=== PATIENT | female | born 1975 | race Caucasian/White ===

== ENCOUNTER 2022-12-03 11:50 | Inpatient (IN) | payer MEDICAID ==
[~2022-12-03] VITALS: Ht 160 cm; Wt 70.0 kg
[2022-12-03 13:21] LABS: BASOPHILS # (AUTO) 0.1 X10'3 (0-0.2); BASOPHILS % (AUTO) 0.8 % (0-1); EOSINOPHILS # (AUTO) 0.1 X10'3 (0-0.9); EOSINOPHILS % (AUTO) 1.3 % (0-6); HEMATOCRIT 38.8 % (35.0-45.0); HEMOGLOBIN 12.6 g/dl (12.0-16.0); LYMPHOCYTES # (AUTO) 1.6 X10'3 (1.1-4.8); LYMPHOCYTES % (AUTO) 23.4 % (21-51); MEAN CORPUSCULAR HEMOGLOBIN 27.5 PG (27.0-31.0); MEAN CORPUSCULAR HGB CONC 32.4 g/dL (33.0-36.5); MEAN CORPUSCULAR VOLUME 84.8 FL (78-98); MEAN PLATELET VOLUME 9.1 FL (7.4-10.4); MONOCYTES # (AUTO) 0.6 X10'3 (0-0.9); MONOCYTES % (AUTO) 8.4 % (2-12); NEUTROPHILS # (AUTO) 4.7 X10'3 (1.8-7.7); NEUTROPHILS % (AUTO) 66.1 % (42-75); PLATELET COUNT 273 X10'3 (140-440); RED BLOOD COUNT 4.58 X10'6 (4.20-5.60); RED CELL DISTRIBUTION WIDTH 16.5 % (11.5-14.5)
[2022-12-03] MEDS ORDERED: acetaminophen 1,000mg/100ml IV 100 ML IV STA (13:26)
[2022-12-03] MEDS ORDERED: morphine 4 MG/ML inj SYRINge IV ONE (13:30)
[2022-12-03 13:31] LABS: APTT 27 SECONDS (22-32); INR 1.1 INR; PROTHROMBIN TIME 11.5 SECONDS (9.0-12.0)
[2022-12-03 13:35] LABS: ALANINE AMINOTRANSFERASE 45 U/L (12-78); ALBUMIN 3.5 G/DL (3.4-5.0); ALBUMIN/GLOBULIN RATIO 0.8 (1.1-1.5); ALKALINE PHOSPHATASE 79 IU/L (46-116); ANION GAP 7 (8-16); ASPARTATE AMINO TRANSFERASE 31 U/L (10-37); BILIRUBIN,TOTAL 1.1 MG/DL (0.1-1.0); BLOOD UREA NITROGEN 18 MG/DL (7-18); CALCIUM 9.6 MG/DL (8.5-10.1); CHLORIDE 94 MMOL/L (99-107); CREATININE 1.38 MG/DL (0.40-0.90); GLUCOSE 89 MG/DL (70-104); POTASSIUM 3.2 MMOL/L (3.5-5.1); SODIUM 131 MMOL/L (135-145); TOTAL CARBON DIOXIDE 30.1 MMOL/L (24-32); TOTAL PROTEIN 7.8 G/DL (6.4-8.2); eCRCL 43 ML/MIN; eGFR 41 ML/MIN
[2022-12-03 14:28] LABS: PRO BRAIN NATRIURETIC PEPTIDE 2966 PG/ML (0-125)
[2022-12-03] MEDS ORDERED: potassium Cl 20 mEq SR tablet PO PRN ×2 (15:25)
[2022-12-03] MEDS ORDERED: acetaminophen 325mg tablet PO PRN (15:25)
[2022-12-03] MEDS ORDERED: potassium Cl 40MEQ/1/2NS 520ml 520 ML IV PRN (15:25)
[2022-12-03] MEDS ORDERED: magnesium Cl slow-release 64mg tablet PO PRN (15:25)
[2022-12-03] MEDS ORDERED: sincalide inj 1.4 MCG in normal saline 100ml IV soln 98.6 ML IV PRN (15:25)
[2022-12-03] MEDS ORDERED: mag hydrox/Alum hydrox/simeth 30ml oral suspension PO PRN (15:25)
[2022-12-03] MEDS ORDERED: magnesium 4gm in 100ml NS 100 ML IV PRN (15:25)
[2022-12-03] MEDS ORDERED: magnesium hydroxide 30ml (MOM) UD suspension PO PRN (15:25)
[2022-12-03] MEDS: normal saline 1000ml 1,000 ML IV SCH (15:35)
[2022-12-03] MEDS ORDERED: nicotine 14mg patch - 24hr TD ONE (15:40)
[2022-12-03] MEDS ORDERED: APIX5TAB3 PO (15:43)
[2022-12-03] MEDS ORDERED: CLOP75TA33 PO (15:43)
[2022-12-03] MEDS ORDERED: GABA300T25 PO (15:43)
[2022-12-03] MEDS ORDERED: BUME2TAB7 PO (15:43)
[2022-12-03] MEDS ORDERED: OXYC5TAB2 PO (15:43)
[2022-12-03] MEDS ORDERED: VENL37.586 PO (15:43)
[2022-12-03] MEDS ORDERED: PANT40TA54 PO (15:43)
[2022-12-03] MEDS ORDERED: MIDO5TAB4 PO (15:43)
[2022-12-03] MEDS ORDERED: EMPA10TA PO (15:43)
[2022-12-03] MEDS ORDERED: SPIR25TA5 PO (15:43)
[2022-12-03] MEDS: morphine 2 MG/ML inj. syringe IV PRN ×2 (16:51→19:56)
[2022-12-03] MEDS: docusate sod 100mg capsule PO SCH (19:53)
[2022-12-03] MEDS: carVEDilol 3.125mg tablet PO SCH (19:53)
[2022-12-03] MEDS: gabapentin 300mg capsule PO SCH (21:34)
--- NOTE | 2022-12-03 22:15 | NUR ---
Patient in room PCU 3017. I have received report from JOY Vigil and had the opportunity to ask questions and assume patient care.
[2022-12-03] MEDS: HYDROcodone/acetaminophen 5mg/325mg tablet PO PRN (22:25)
[2022-12-03 22:30] VITALS: BP 95/69; PULSE 99; RESP 16; TEMP 98.1; O2SAT 100
--- NOTE | 2022-12-03 22:30 | NUR ---
pt arrived to floor via gurney. transferred to bed. oriented to the room. call light in reach.
[2022-12-03 22:45] VITALS: RESP 16; O2SAT 100
[2022-12-03] MEDS ORDERED: Melatonin 3mg tablet PO PRN (23:45)
[2022-12-04] VITALS (7 sets, daily range): BP systolic 82–98; BP diastolic 55–69; PULSE 61–107; RESP 13–25; TEMP 97.6–98.7; O2SAT 98–100
[2022-12-04] MEDS: ondansetron/PF 4mg/2ml inj IV PRN (00:05)
[2022-12-04] MEDS: diphenhydrAMINE 25mg capsule PO PRN ×2 (00:05→17:47)
[2022-12-04] MEDS: morphine 2 MG/ML inj. syringe IV PRN ×3 (03:10→12:43)
--- NOTE | 2022-12-04 06:30 | NUR ---
Patient in room PCU 3017. I have received report from Raquel and had the opportunity to ask questions and assume patient care. Addendum: 12/05/22 at 0033 by Sapphire Walker LVN, LVN Report received at [id number]
[2022-12-04 07:18] LABS: BASOPHILS # (AUTO) 0.1 X10'3 (0-0.2); BASOPHILS % (AUTO) 1.3 % (0-1); EOSINOPHILS # (AUTO) 0.1 X10'3 (0-0.9); EOSINOPHILS % (AUTO) 2.6 % (0-6); HEMATOCRIT 37.5 % (35.0-45.0); HEMOGLOBIN 12.3 g/dl (12.0-16.0); LYMPHOCYTES % (AUTO) 42.6 % (21-51); MEAN CORPUSCULAR HEMOGLOBIN 27.9 PG (27.0-31.0); MEAN CORPUSCULAR HGB CONC 32.7 g/dL (33.0-36.5); MEAN CORPUSCULAR VOLUME 85.4 FL (78-98); MEAN PLATELET VOLUME 9.1 FL (7.4-10.4); MONOCYTES # (AUTO) 0.4 X10'3 (0-0.9); MONOCYTES % (AUTO) 9.1 % (2-12); NEUTROPHILS % (AUTO) 44.4 % (42-75); PLATELET COUNT 247 X10'3 (140-440); RED CELL DISTRIBUTION WIDTH 16.1 % (11.5-14.5); WHITE BLOOD COUNT 4.6 X10'3 (4.5-11.0)
[2022-12-04 07:39] LABS: APTT 27 SECONDS (22-32); INR 1.1 INR; PROTHROMBIN TIME 11.4 SECONDS (9.0-12.0)
[2022-12-04 07:41] LABS: ALANINE AMINOTRANSFERASE 39 U/L (12-78); ALBUMIN 3.3 G/DL (3.4-5.0); ALBUMIN/GLOBULIN RATIO 0.8 (1.1-1.5); ALKALINE PHOSPHATASE 73 IU/L (46-116); ANION GAP 9 (8-16); ASPARTATE AMINO TRANSFERASE 25 U/L (10-37); BLOOD UREA NITROGEN 16 MG/DL (7-18); BUN/CREATININE RATIO 11.3 (10.0-20.0); CALCIUM 9.5 MG/DL (8.5-10.1); CHLORIDE 98 MMOL/L (99-107); CREATININE 1.41 MG/DL (0.40-0.90); GLUCOSE 93 MG/DL (70-104); PHOSPHORUS 4.5 MG/DL (2.3-4.5); POTASSIUM 3.6 MMOL/L (3.5-5.1); SODIUM 134 MMOL/L (135-145); TOTAL CARBON DIOXIDE 27.3 MMOL/L (24-32); TOTAL PROTEIN 7.4 G/DL (6.4-8.2); eCRCL 42 ML/MIN; eGFR 40 ML/MIN
[2022-12-04] MEDS: bumetanide 1mg tablet PO SCH (08:00)
[2022-12-04] MEDS: spironolactone 25 MG tablet PO SCH (08:00)
[2022-12-04] MEDS: carVEDilol 3.125mg tablet PO SCH ×2 (08:00→20:00)
[2022-12-04] MEDS: lisinopril 2.5mg tablet PO SCH (08:00)
--- NOTE | 2022-12-04 08:57 | NUR ---
[id number] Mamie Ortiz EXT [id number] Talked with Arturo. He has no plan. Can pt have morning meds? Thanks, Suellen
--- NOTE | 2022-12-04 11:30 | NUR ---
PT IN NUC MED FOR HIDA, MEDICATION INFUSING VIA PUMP, PT IS RESTING QUIETLY ON BED, RESP EVEN AND UNLABORED.
[2022-12-04] MEDS: normal saline 1000ml 1,000 ML IV SCH (11:35)
--- NOTE | 2022-12-04 12:10 | NUR ---
pt back to room 3017, able to transfer self without assist from wheelchair to bed, report to Raquel HAMILTON
--- NOTE | 2022-12-04 12:38 | NUR ---
m [id number] [facility] Ext 7841 Pt bp is 80/56. I am holding the blood pressure meds and diuretics. Do you want anything else ? Suellen Benz
[2022-12-04] MEDS: docusate sod 100mg capsule PO SCH ×2 (12:47→20:01)
[2022-12-04] MEDS: pantoprazole 40mg Tablet.DR PO SCH (12:47)
[2022-12-04] MEDS: venlafaxine XR 75mg capsule (Q24H) PO SCH (12:47)
[2022-12-04] MEDS: HYDROcodone/acetaminophen 5mg/325mg tablet PO PRN ×3 (12:56→21:43)
--- NOTE | 2022-12-04 14:06 | NUR ---
Malnutrition/DM consult: Per EMR pt with T2DM versus prediabetes, current A1c is 6.4% and BG well controlled (89-93 mg/dL), DM education/diagnosis not warranted at this time. Pt reports 34 lb or more wt loss with decreased appetite/PO intake per malnutrition risk screen with RN. Current documented wt is 70 kg though not scaled and no scaled wt hx in EMR. Multiple attempted visits with pt at bedside however pt unavailable. Unable to assess PO intake at this time as pt is NPO. Pt with no documented decrease in muscle strength or edema. Unable to fully assess nutrition status at this time d/t limited information. Recommend obtaining a scaled weight and will f/u with pt at another time to obtain weight/PO hx to fully assess for malnutrition. Will continue to follow. Addendum: 12/04/22 at [address] Amended: Links added.
[2022-12-04] MEDS ORDERED: midodrine 5mg tablet PO ONE (15:55)
[2022-12-04 19:57] LABS: H PYLORI ANTIBODY NEGATIVE (Neg)
[2022-12-04] MEDS: gabapentin 300mg capsule PO SCH (21:43)
[2022-12-04] MEDS: diatr meglu/diatrizoate 30ml oral sol.-(3 dose) bottle PO SCH (21:44)
[2022-12-05] VITALS (7 sets, daily range): BP systolic 82–104; BP diastolic 54–75; PULSE 98–113; RESP 15–22; TEMP 97.6–98.1; O2SAT 94–98
[2022-12-05] MEDS: morphine 2 MG/ML inj. syringe IV PRN (00:42)
[2022-12-05] MEDS: diphenhydrAMINE 25mg capsule PO PRN ×2 (02:47→22:45)
[2022-12-05] MEDS: HYDROcodone/acetaminophen 5mg/325mg tablet PO PRN ×4 (05:58→23:44)
--- NOTE | 2022-12-05 06:28 | NUR ---
Problems reprioritized. Patient report given, questions answered & plan of care reviewed with Ramses.
--- NOTE | 2022-12-05 06:46 | NUR ---
Patient in room PCU 3017. I have received report from Sapphire HAMILTON and had the opportunity to ask questions and assume patient care.
--- NOTE | 2022-12-05 06:55 | NUR ---
I AGREE WITH INCLUSION SPECIAL EDUCATOR'S ASSESSMENT
[2022-12-05 07:45] LABS: BASOPHILS # (AUTO) 0.1 X10'3 (0-0.2); BASOPHILS % (AUTO) 1.1 % (0-1); EOSINOPHILS # (AUTO) 0.1 X10'3 (0-0.9); EOSINOPHILS % (AUTO) 2.2 % (0-6); HEMATOCRIT 38.5 % (35.0-45.0); HEMOGLOBIN 12.3 g/dl (12.0-16.0); LYMPHOCYTES # (AUTO) 1.9 X10'3 (1.1-4.8); LYMPHOCYTES % (AUTO) 37.7 % (21-51); MEAN CORPUSCULAR HEMOGLOBIN 27.4 PG (27.0-31.0); MEAN CORPUSCULAR HGB CONC 31.9 g/dL (33.0-36.5); MEAN PLATELET VOLUME 9.2 FL (7.4-10.4); MONOCYTES # (AUTO) 0.3 X10'3 (0-0.9); MONOCYTES % (AUTO) 6.5 % (2-12); NEUTROPHILS # (AUTO) 2.6 X10'3 (1.8-7.7); NEUTROPHILS % (AUTO) 52.5 % (42-75); PLATELET COUNT 240 X10'3 (140-440); RED BLOOD COUNT 4.48 X10'6 (4.20-5.60); RED CELL DISTRIBUTION WIDTH 16.5 % (11.5-14.5)
[2022-12-05 07:52] LABS: APTT 26 SECONDS (22-32); INR 1.1 INR; PROTHROMBIN TIME 11.6 SECONDS (9.0-12.0)
[2022-12-05] MEDS: spironolactone 25 MG tablet PO SCH (08:00)
[2022-12-05] MEDS: carVEDilol 3.125mg tablet PO SCH ×2 (08:00→20:24)
[2022-12-05] MEDS: lisinopril 2.5mg tablet PO SCH (08:00)
[2022-12-05] MEDS: diatr meglu/diatrizoate 30ml oral sol.-(3 dose) bottle PO SCH ×2 (08:12→10:20)
[2022-12-05] MEDS: pantoprazole 40mg Tablet.DR PO SCH (08:13)
[2022-12-05] MEDS: docusate sod 100mg capsule PO SCH ×2 (08:14→20:24)
[2022-12-05] MEDS: venlafaxine XR 75mg capsule (Q24H) PO SCH (08:14)
[2022-12-05] MEDS: bumetanide 1mg tablet PO SCH (08:15)
[2022-12-05 08:21] LABS: ALANINE AMINOTRANSFERASE 37 U/L (12-78); ALBUMIN 3.1 G/DL (3.4-5.0); ALBUMIN/GLOBULIN RATIO 0.8 (1.1-1.5); ALKALINE PHOSPHATASE 64 IU/L (46-116); ANION GAP 11 (8-16); ASPARTATE AMINO TRANSFERASE 23 U/L (10-37); BILIRUBIN,TOTAL 0.8 MG/DL (0.1-1.0); BLOOD UREA NITROGEN 17 MG/DL (7-18); CALCIUM 9.3 MG/DL (8.5-10.1); CHLORIDE 102 MMOL/L (99-107); CREATININE 1.42 MG/DL (0.40-0.90); GLUCOSE 120 MG/DL (70-104); MAGNESIUM 2.2 MG/DL (1.5-2.4); PHOSPHORUS 4.4 MG/DL (2.3-4.5); POTASSIUM 4.3 MMOL/L (3.5-5.1); SODIUM 137 MMOL/L (135-145); TOTAL CARBON DIOXIDE 24.4 MMOL/L (24-32); eCRCL 41 ML/MIN; eGFR 40 ML/MIN
[2022-12-05] MEDS: ondansetron/PF 4mg/2ml inj IV PRN (10:31)
[2022-12-05] MEDS ORDERED: aminophylline 250mg/10ml inj. IV PRN (10:35)
[2022-12-05] MEDS ORDERED: nitroGLYCERIN 0.4mg SUBLingual tab SL PRN (10:35)
[2022-12-05] MEDS ORDERED: regadenoson 0.4mg/5ml syringe IV PRN (10:35)
[2022-12-05] MEDS ORDERED: metoprolol tartrate 1mg/ml inj IV PRN (10:35)
--- NOTE | 2022-12-05 12:45 | NUR ---
F/u for malnutrition consult: Attempted visit with pt at bedside with visitor present however pt sleeping and requested RD come back at another time. RD contact information placed at patient's bedside and pt encouraged to reach out if needed. No visible fat or muscle wasting appreciated. Pt currently lacks a minimum of two criteria for malnutrition though will continue to follow and monitor s/s of malnutrition. Addendum: 12/05/22 at [address] Amended: Links added.
--- NOTE | 2022-12-05 17:02 | NUR ---
PAGER ID: [phone] MESSAGE: Angel [phone], Pt has complained about pain that hasn't been managed well with meds. She has Kinderhook 5's available, do you want Kinderhook 10's available for her? Ramses [phone]
--- NOTE | 2022-12-05 17:41 | NUR ---
PAGER ID: [phone] MESSAGE: Angel [phone], Did pt get a production tool engineer to agree to consult on pt today? Ramses [phone]
--- NOTE | 2022-12-05 18:26 | NUR ---
Problems reprioritized. Patient report given, questions answered & plan of care reviewed with Emelia CHACON.
[2022-12-05] MEDS: gabapentin 300mg capsule PO SCH (21:28)
[2022-12-05] MEDS: HYDROmorphone 1 mg/ml syringe IV PRN (21:38)
[2022-12-06] VITALS (14 sets, daily range): BP systolic 86–105; BP diastolic 58–73; PULSE 70–114; RESP 14–22; TEMP 97.6–98.1; O2SAT 95–100
[2022-12-06] MEDS: HYDROcodone/acetaminophen 5mg/325mg tablet PO PRN ×3 (05:26→17:57)
[2022-12-06] MEDS: diphenhydrAMINE 25mg capsule PO PRN (05:28)
--- NOTE | 2022-12-06 06:28 | NUR ---
Problems reprioritized. Patient report given, questions answered & plan of care reviewed with Emelia CHACON.
--- NOTE | 2022-12-06 07:15 | NUR ---
This RN has reviewed and agrees w/the [facility] [employer]'s physical assessment of this patient.
[2022-12-06] MEDS: bumetanide 1mg tablet PO SCH (07:27)
[2022-12-06] MEDS: pantoprazole 40mg Tablet.DR PO SCH (07:28)
[2022-12-06] MEDS: carVEDilol 3.125mg tablet PO SCH ×2 (07:29→20:00)
[2022-12-06] MEDS: lisinopril 2.5mg tablet PO SCH (07:29)
[2022-12-06] MEDS: docusate sod 100mg capsule PO SCH ×2 (07:29→20:00)
[2022-12-06] MEDS: venlafaxine XR 75mg capsule (Q24H) PO SCH (07:29)
[2022-12-06] MEDS: spironolactone 25 MG tablet PO SCH (07:30)
[2022-12-06] MEDS: ondansetron/PF 4mg/2ml inj IV PRN (07:34)
[2022-12-06 07:37] LABS: BASOPHILS # (AUTO) 0.1 X10'3 (0-0.2); BASOPHILS % (AUTO) 1.1 % (0-1); EOSINOPHILS # (AUTO) 0.1 X10'3 (0-0.9); EOSINOPHILS % (AUTO) 2.2 % (0-6); HEMATOCRIT 37.9 % (35.0-45.0); HEMOGLOBIN 12.2 g/dl (12.0-16.0); LYMPHOCYTES % (AUTO) 38.1 % (21-51); MEAN CORPUSCULAR HEMOGLOBIN 27.7 PG (27.0-31.0); MEAN CORPUSCULAR HGB CONC 32.3 g/dL (33.0-36.5); MEAN CORPUSCULAR VOLUME 85.8 FL (78-98); MEAN PLATELET VOLUME 9.2 FL (7.4-10.4); MONOCYTES # (AUTO) 0.3 X10'3 (0-0.9); MONOCYTES % (AUTO) 6.7 % (2-12); NEUTROPHILS # (AUTO) 2.7 X10'3 (1.8-7.7); NEUTROPHILS % (AUTO) 51.9 % (42-75); PLATELET COUNT 213 X10'3 (140-440); RED BLOOD COUNT 4.41 X10'6 (4.20-5.60); RED CELL DISTRIBUTION WIDTH 16.3 % (11.5-14.5); WHITE BLOOD COUNT 5.2 X10'3 (4.5-11.0)
[2022-12-06 07:45] LABS: APTT 29 SECONDS (22-32); INR 1.2 INR; PROTHROMBIN TIME 12.7 SECONDS (9.0-12.0)
[2022-12-06 08:07] LABS: ALANINE AMINOTRANSFERASE 43 U/L (12-78); ALBUMIN 3.2 G/DL (3.4-5.0); ALBUMIN/GLOBULIN RATIO 0.9 (1.1-1.5); ALKALINE PHOSPHATASE 65 IU/L (46-116); ANION GAP 8 (8-16); ASPARTATE AMINO TRANSFERASE 32 U/L (10-37); BILIRUBIN,TOTAL 1.3 MG/DL (0.1-1.0); BLOOD UREA NITROGEN 17 MG/DL (7-18); BUN/CREATININE RATIO 10.5 (10.0-20.0); CALCIUM 9.6 MG/DL (8.5-10.1); CHLORIDE 99 MMOL/L (99-107); CREATININE 1.62 MG/DL (0.40-0.90); GLUCOSE 89 MG/DL (70-104); MAGNESIUM 2.1 MG/DL (1.5-2.4); PHOSPHORUS 5.1 MG/DL (2.3-4.5); POTASSIUM 3.9 MMOL/L (3.5-5.1); SODIUM 132 MMOL/L (135-145); TOTAL CARBON DIOXIDE 25.4 MMOL/L (24-32); TOTAL PROTEIN 6.9 G/DL (6.4-8.2); eCRCL 36 ML/MIN; eGFR 34 ML/MIN
[2022-12-06] MEDS ORDERED: proCHLORperazine 10 MG/2 ml inj IV ONE (09:15)
--- NOTE | 2022-12-06 09:25 | NUR ---
in nuc med for stress test, pt c/o n/v, dry jeffrey, paged Dr Mercado, he gave a verbal order for compazine 10mg IV x1.
--- NOTE | 2022-12-06 18:59 | NUR ---
Problems reprioritized. Patient report given, questions answered & plan of care reviewed with Cammy barnard RN.
--- NOTE | 2022-12-06 19:56 | NUR ---
Patient in room PCU 3017. I have received report from Marc HAMILTON and had the opportunity to ask questions and assume patient care.
[2022-12-06] MEDS: nicotine 14mg patch - 24hr TD SCH (23:50)
[2022-12-07] VITALS (13 sets, daily range): BP systolic 90–112; BP diastolic 65–91; PULSE 84–112; RESP 14–21; TEMP 97–98.2; O2SAT 93–100
--- NOTE | 2022-12-07 | NUR ---
Problems reprioritized. Patient report given, questions answered & plan of care reviewed with Donya HAMILTON.
--- NOTE | 2022-12-07 | NUR ---
assumed care from JOY Loo. pt resting at this time. noted low BP is normal for patient. no symptoms distress.
[2022-12-07] MEDS: gabapentin 300mg capsule PO SCH ×2 (00:05→22:02)
[2022-12-07] MEDS: HYDROcodone/acetaminophen 5mg/325mg tablet PO PRN ×2 (00:06→06:08)
--- NOTE | 2022-12-07 06:40 | NUR ---
reported to days. noted pt aware of NPO status. has not heard from Dr. Fabian what procedures are expected today. norco given for lower right quad pain.
[2022-12-07 06:58] LABS: INR 1.1 INR; PROTHROMBIN TIME 11.9 SECONDS (9.0-12.0)
[2022-12-07 07:06] LABS: ALANINE AMINOTRANSFERASE 58 U/L (12-78); ALBUMIN 3.3 G/DL (3.4-5.0); ALBUMIN/GLOBULIN RATIO 0.8 (1.1-1.5); ALKALINE PHOSPHATASE 69 IU/L (46-116); ANION GAP 11 (8-16); ASPARTATE AMINO TRANSFERASE 67 U/L (10-37); BILIRUBIN,TOTAL 1.4 MG/DL (0.1-1.0); BLOOD UREA NITROGEN 12 MG/DL (7-18); BUN/CREATININE RATIO 7.1 (10.0-20.0); CALCIUM 9.3 MG/DL (8.5-10.1); CHLORIDE 97 MMOL/L (99-107); CREATININE 1.69 MG/DL (0.40-0.90); GLUCOSE 87 MG/DL (70-104); MAGNESIUM 2.1 MG/DL (1.5-2.4); POTASSIUM 3.1 MMOL/L (3.5-5.1); SODIUM 136 MMOL/L (135-145); TOTAL CARBON DIOXIDE 28.3 MMOL/L (24-32); TOTAL PROTEIN 7.2 G/DL (6.4-8.2); eCRCL 35 ML/MIN; eGFR 33 ML/MIN
[2022-12-07] MEDS: spironolactone 25 MG tablet PO SCH (07:22)
[2022-12-07] MEDS: lisinopril 2.5mg tablet PO SCH (07:23)
[2022-12-07] MEDS: docusate sod 100mg capsule PO SCH (07:23)
[2022-12-07 07:28] LABS: BASOPHILS # (AUTO) 0.1 X10'3 (0-0.2); BASOPHILS % (AUTO) 1.3 % (0-1); EOSINOPHILS # (AUTO) 0.1 X10'3 (0-0.9); EOSINOPHILS % (AUTO) 1.9 % (0-6); HEMATOCRIT 39.1 % (35.0-45.0); HEMOGLOBIN 12.8 g/dl (12.0-16.0); LYMPHOCYTES # (AUTO) 1.5 X10'3 (1.1-4.8); LYMPHOCYTES % (AUTO) 33.6 % (21-51); MEAN CORPUSCULAR HGB CONC 32.8 g/dL (33.0-36.5); MEAN CORPUSCULAR VOLUME 85.2 FL (78-98); MEAN PLATELET VOLUME 9.3 FL (7.4-10.4); MONOCYTES # (AUTO) 0.3 X10'3 (0-0.9); MONOCYTES % (AUTO) 6.9 % (2-12); NEUTROPHILS # (AUTO) 2.5 X10'3 (1.8-7.7); NEUTROPHILS % (AUTO) 56.3 % (42-75); PLATELET COUNT 202 X10'3 (140-440); RED BLOOD COUNT 4.59 X10'6 (4.20-5.60); RED CELL DISTRIBUTION WIDTH 16.6 % (11.5-14.5); WHITE BLOOD COUNT 4.4 X10'3 (4.5-11.0)
[2022-12-07] MEDS: carVEDilol 3.125mg tablet PO SCH ×2 (07:34→19:52)
[2022-12-07] MEDS: HYDROmorphone 1 mg/ml syringe IV PRN (08:14)
[2022-12-07] MEDS: nicotine 14mg patch - 24hr TD SCH (08:15)
[2022-12-07] MEDS: bumetanide 1mg tablet PO SCH (08:16)
[2022-12-07] MEDS: pantoprazole 40mg Tablet.DR PO SCH (08:16)
[2022-12-07] MEDS: venlafaxine XR 75mg capsule (Q24H) PO SCH (08:17)
[2022-12-07] MEDS ORDERED: potassium Cl 20 mEq SR tablet PO PRN ×2 (08:50)
[2022-12-07] MEDS ORDERED: magnesium 4gm in 100ml NS 100 ML IV PRN (08:50)
[2022-12-07] MEDS ORDERED: potassium Cl 40MEQ/1/2NS 520ml 520 ML IV PRN (08:50)
[2022-12-07] MEDS ORDERED: magnesium 2GM in 50ml NS 50 ML IV PRN (08:50)
[2022-12-07] MEDS ORDERED: magnesium Cl slow-release 64mg tablet PO PRN (08:50)
[2022-12-07] MEDS: diphenhydrAMINE 25mg capsule PO PRN (09:16)
[2022-12-07] MEDS ORDERED: BUPIVAcaine/PF 2.5 mg/ml (0.25%) 30ml vial ONE ×2 (10:39→16:32)
--- NOTE | 2022-12-07 11:30 | NUR ---
Per Dr Mckeon, give iv bag potassium at this time.
--- NOTE | 2022-12-07 13:14 | NUR ---
gone to surgery
[2022-12-07] MEDS ORDERED: levoFLOXACIN-Levaquin 500mg/D5 100 ML IV ONE (14:45)
[2022-12-07] MEDS ORDERED: midazolam 1 mg/ML 2ml injection ONE (15:40)
[2022-12-07] MEDS ORDERED: sevoflurane 250ml liquid IH ONE (15:40)
[2022-12-07] MEDS ORDERED: ondansetron/PF 4mg/2ml inj ONE (16:09)
[2022-12-07] MEDS ORDERED: fentaNYL /PF 50mcg/ml 5ml ampule ONE (16:09)
[2022-12-07] MEDS ORDERED: dexamethasone sod phosphate 4mg/ml inj. ONE (16:09)
[2022-12-07] MEDS ORDERED: propofol inj 20 ML IV ONE (16:10)
[2022-12-07] MEDS ORDERED: rocuronium 10mg/ml inj IV ONE (16:10)
[2022-12-07] MEDS ORDERED: LIDOcaine 2% (20mg/ml) 5ml vial ONE (16:10)
[2022-12-07] MEDS ORDERED: labetalol 20mg/4ml (5mg/ml) syringe IV PRN (16:15)
[2022-12-07] MEDS ORDERED: ondansetron/PF 4mg/2ml inj IV PRN (16:15)
[2022-12-07] MEDS ORDERED: acetaminophen 1,000mg/100ml IV 100 ML IV PRN (16:15)
[2022-12-07] MEDS ORDERED: HYDROmorphone/PF 0.2 MG/ML SYRINGE IV PRN (16:15)
[2022-12-07] MEDS ORDERED: hydrALAZINE 20mg/ml inj. IV PRN (16:15)
[2022-12-07] MEDS ORDERED: ringers solution, lacted 1,000 ML IV SCH (16:15)
[2022-12-07] MEDS ORDERED: proCHLORperazine 10 MG/2 ml inj IV PRN (16:15)
[2022-12-07] MEDS ORDERED: morphine 4 MG/ML inj SYRINge IV PRN (16:15)
[2022-12-07] MEDS ORDERED: morphine 2 MG/ML inj. syringe IV PRN (16:15)
[2022-12-07] MEDS ORDERED: 0.9 % SODIUM CHLORIDE 10 ML VIAL ONE (16:18)
[2022-12-07] MEDS ORDERED: ePHEDrine 50MG/ML INJ. ONE (16:18)
[2022-12-07] MEDS ORDERED: BUPIVAcaine/PF 2.5 mg/ml (0.25%) 30ml vial IJ ONE (16:32)
[2022-12-07] MEDS ORDERED: phenylephrine 10mg/ml inj. -priapism dosing ONE (16:47)
[2022-12-07] MEDS ORDERED: glycopyrrolate 0.2mg/ml inj ONE (16:50)
[2022-12-07] MEDS ORDERED: neostigmine methylsulfate 1 MG/ML 10ml vial ONE (16:50)
[2022-12-07] MEDS ORDERED: sugammadex 200mg/2ml injection IV ONE (17:03)
[2022-12-07] MEDS ORDERED: morphine 4 MG/ML inj SYRINge IV ONE (17:10)
--- NOTE | 2022-12-07 17:14 | NUR ---
ALL DISCHARGE CRITERIA HAS BEEN MET. VSS, PAIN AT A TOLERABLE LEVEL, VOIDING AND ABLE TO SAFELY AMBULATE AND TRANSFER SELF. IV TAKEN OUT WITHOUT ANY COMPLICATIONS. ALL DISCHARGE INSTRUCTIONS COVERED WITH PATIENT AND ALL QUESTIONS ANSWERED. PATIENT TAKEN OUT VIA WHEELCHAIR TO PERSONAL VEHICLE WHERE FAMILY/FRIEND DROVE PATIENT HOME. Addendum: 12/07/22 at 1724 by Olivier Walker RN, RN Amended: Links added.
[2022-12-07] MEDS ORDERED: HYDROmorphone inj. 0.5 MG/0.5 ML DISP.SYRIN IV PRN ×2 (17:15→23:25)
[2022-12-07] MEDS: HYDROmorphone/PF 0.2 MG/ML SYRINGE IV PRN ×2 (17:18→17:53)
--- NOTE | 2022-12-07 18:14 | NUR ---
ALL CRITERIA FOR TRANSFER TO THE FLOOR HAS BEEN MET. PATIENT SETTLED IN WITH VS AND POSITIONED TO COMFORT. NOTIFIED RN THAT PATIENT HAS ARRIVED. SPOUSE AT BEDSIDE. PATIENT PLACED IN COMFORTABLE POSITION AND CARE TURNED OVER TO NOC SHIFT RN. NIPPLE RINGS X2 SENT WITH PATIENT. Addendum: 12/07/22 at 1828 by Olivier Mark - JOY RN Amended: Links added.
--- NOTE | 2022-12-07 18:47 | NUR ---
REPORT GIVEN TO KAY CHACON, PT RESTING JUST CAME BACK FROM OR. PT DOES HAVE PAIN COMPLAINTS, KAY AWARE AND WILL MONITOR.
--- NOTE | 2022-12-07 19:15 | NUR ---
Paged provider PAGER ID: [phone] MESSAGE: [phone] [id number]. Ruddy Ortiz. Pt just got back on the floor post cholecystectomy pt is in lots of pain and only has norco 5/325 Q4hrs. Pt requesting dilaudid for pain management. please advise. Barbie HAMILTON [phone]
--- NOTE | 2022-12-07 19:29 | NUR ---
Spoke with provider regarding pain management. pt is s/p cholecystectomy. Provider ordered oxycodone 10mg PO Q4hrs for pain. NRBO.
[2022-12-07] MEDS: oxyCODONE IR 5mg (immed. release) tablet PO PRN ×2 (19:49→23:51)
--- NOTE | 2022-12-07 23:16 | NUR ---
Pt coughed and stated she felt a pop in one of her laparoscopic sites, also stated that her pain level has decreased. Upon assessment there is bloody discharge to the dressing below unbilicus, but site is not actively bleeding. Nurse called surgeon Rui to inform him. Pt VSS. Dr. Fabian also gave order for 0.25mg IV Q4hrs as needed for pain. Nurse will continue to monitor pt.
--- NOTE | 2022-12-08 01:58 | NUR ---
Pt c/o being itchy, no s/s of rash noticed upon assessment. MD notified and MD gave new order for Benadryl 25mg PO Q6hrs as needed for itchiness.
[2022-12-08] MEDS: diphenhydrAMINE 25mg capsule PO PRN ×3 (02:17→22:26)
[2022-12-08 02:40] VITALS: BP 91/63; PULSE 89; RESP 13; TEMP 97.3; O2SAT 97
[2022-12-08] MEDS: oxyCODONE IR 5mg (immed. release) tablet PO PRN (04:26)
--- NOTE | 2022-12-08 04:40 | NUR ---
pt stated she was having indigestion, PRN medication given. Pt seems restless, nurse got pt up to try walking, when pt got out of bed she stated her legs felt like she had "sea legs" after standing for a few minutes she walked 20ft then felt she had to go back to bed. Pt also stated she had a headache while she was walking. Nurse helped pt back to bed and made sure pts needs were met before leaving the room.
[2022-12-08 06:00] VITALS: BP 104/78; PULSE 95; RESP 18; TEMP 98.1; O2SAT 98
[2022-12-08 06:30] LABS: BASOPHILS % (AUTO) 0.2 % (0-1); EOSINOPHILS % (AUTO) 0.1 % (0-6); HEMATOCRIT 37.5 % (35.0-45.0); HEMOGLOBIN 12.2 g/dl (12.0-16.0); LYMPHOCYTES # (AUTO) 0.6 X10'3 (1.1-4.8); LYMPHOCYTES % (AUTO) 9.3 % (21-51); MEAN CORPUSCULAR HEMOGLOBIN 27.7 PG (27.0-31.0); MEAN CORPUSCULAR HGB CONC 32.6 g/dL (33.0-36.5); MEAN CORPUSCULAR VOLUME 85.1 FL (78-98); MEAN PLATELET VOLUME 9.2 FL (7.4-10.4); MONOCYTES # (AUTO) 0.1 X10'3 (0-0.9); MONOCYTES % (AUTO) 2.1 % (2-12); NEUTROPHILS # (AUTO) 5.8 X10'3 (1.8-7.7); NEUTROPHILS % (AUTO) 88.3 % (42-75); PLATELET COUNT 183 X10'3 (140-440); RED BLOOD COUNT 4.41 X10'6 (4.20-5.60); RED CELL DISTRIBUTION WIDTH 15.9 % (11.5-14.5); WHITE BLOOD COUNT 6.5 X10'3 (4.5-11.0)
[2022-12-08 06:38] LABS: INR 1.2 INR; PROTHROMBIN TIME 12.4 SECONDS (9.0-12.0)
--- NOTE | 2022-12-08 06:49 | NUR ---
Problems reprioritized. Patient report given, questions answered & plan of care reviewed with Gabi HAMILTON. Pt stable at shift change.
[2022-12-08] MEDS ORDERED: naloxone 0.4 mg/ml inj IV PRN (07:05)
[2022-12-08 07:08] LABS: ALANINE AMINOTRANSFERASE 68 U/L (12-78); ALBUMIN 3.2 G/DL (3.4-5.0); ALBUMIN/GLOBULIN RATIO 0.8 (1.1-1.5); ALKALINE PHOSPHATASE 68 IU/L (46-116); ANION GAP 12 (8-16); ASPARTATE AMINO TRANSFERASE 88 U/L (10-37); BILIRUBIN,TOTAL 1.3 MG/DL (0.1-1.0); BLOOD UREA NITROGEN 14 MG/DL (7-18); BUN/CREATININE RATIO 8.6 (10.0-20.0); CALCIUM 9.6 MG/DL (8.5-10.1); CHLORIDE 95 MMOL/L (99-107); CREATININE 1.63 MG/DL (0.40-0.90); GLUCOSE 165 MG/DL (70-104); MAGNESIUM 1.8 MG/DL (1.5-2.4); PHOSPHORUS 4.5 MG/DL (2.3-4.5); SODIUM 130 MMOL/L (135-145); TOTAL CARBON DIOXIDE 22.9 MMOL/L (24-32); TOTAL PROTEIN 7.2 G/DL (6.4-8.2); eCRCL 36 ML/MIN; eGFR 34 ML/MIN
[2022-12-08 08:00] VITALS: RESP 18; O2SAT 98
[2022-12-08] MEDS: nicotine 14mg patch - 24hr TD SCH ×2 (08:00→17:47)
[2022-12-08] MEDS: lisinopril 2.5mg tablet PO SCH (08:00)
[2022-12-08] MEDS: HYDROmorph/NS 0.2 mg/ml PCA 100 ML IV SCH ×9 (09:00→23:00)
[2022-12-08 10:00] VITALS: BP 98/71; PULSE 86; RESP 17; TEMP 97.2; O2SAT 98
--- NOTE | 2022-12-08 10:24 | NUR ---
PAGER ID: [phone] MESSAGE: Mamie Ortiz [phone] Pt. will be placed on CADD pump- needs more oral pain meds though. Pt. also has no post op anticoag? Gabi [phone]
[2022-12-08] MEDS: pantoprazole 40mg Tablet.DR PO SCH (10:28)
[2022-12-08] MEDS: carVEDilol 3.125mg tablet PO SCH ×2 (10:29→19:31)
[2022-12-08] MEDS: spironolactone 25 MG tablet PO SCH (10:29)
--- NOTE | 2022-12-08 11:13 | NUR ---
Initial: Pt admit DX symptomatic gallbladder stones post-op day 1 s/p lap cholecystectomy 12/07, hyponatremia, hypokalemia, ЕЛЕНА, hematemesis due to blood thinners now held per EMR. Pt PO ~59% of 4 Na-restricted meals otherwise NPO other 4 days not meeting needs. Pt w/ persist low serum Na this LOS lowest this AM 130mmo/L; RD d/w RN and jacki VELAZQUEZ regarding liberalizing to regular diet as Na-restriction not appropriate. If pt allowed to eat and initial PO trends remain would meet ~98% kcal and 100% protein estimated needs. If to remain NPO despite functioning gut then supplemental EN to meet nutrition needs. LBM 12/06 per EMR. Will monitor for further nutrition intervention needs. Rec: 1. liberalize to regular diet; Na-restricted not indicated w/ low serum Na and mostly NPO this LOS 2. monitor PO trends for ONS needs 3. If to remain NPO despite functional gut; supplemental EN via NG for nutrition needs 4. routine bowel care 5. scaled wt this admit; subsequent weekly wt Addendum: 12/08/22 at [address] Amended: Links added.
[2022-12-08] MEDS: venlafaxine XR 75mg capsule (Q24H) PO SCH (11:26)
[2022-12-08 18:00] VITALS: BP 119/86; PULSE 104; RESP 15; TEMP 97.9; O2SAT 98
--- NOTE | 2022-12-08 18:30 | NUR ---
GAVE REPORT TO KAY HAMILTON.
[2022-12-08] MEDS: heparin, porcine 5000 units/ml vial SQ SCH (19:31)
[2022-12-08 22:00] VITALS: BP 101/76; PULSE 118; RESP 15; TEMP 98.2; O2SAT 96
[2022-12-08] MEDS: ondansetron/PF 4mg/2ml inj IV PRN (22:26)
[2022-12-08] MEDS: gabapentin 300mg capsule PO SCH (22:26)
[2022-12-09] MEDS: HYDROmorph/NS 0.2 mg/ml PCA 100 ML IV SCH ×6 (01:00→11:00)
[2022-12-09 02:00] VITALS: BP 93/70; PULSE 103; RESP 18; TEMP 97.7; O2SAT 94
--- NOTE | 2022-12-09 03:54 | NUR ---
pt had episode of emesis x2 this shift, nurse administered 4mg zofran which was effective.
--- NOTE | 2022-12-09 06:34 | NUR ---
Problems reprioritized. Patient report given, questions answered & plan of care reviewed with Gabi HAMILTON. Pt stable at shift change.
[2022-12-09 07:00] VITALS: BP 95/68; PULSE 93; RESP 16; TEMP 97.8; O2SAT 98
[2022-12-09 08:00] VITALS: RESP 18; O2SAT 98
[2022-12-09] MEDS: spironolactone 25 MG tablet PO SCH (08:00)
[2022-12-09] MEDS: lisinopril 2.5mg tablet PO SCH (08:00)
[2022-12-09] MEDS: carVEDilol 3.125mg tablet PO SCH (08:02)
[2022-12-09] MEDS: pantoprazole 40mg Tablet.DR PO SCH (08:02)
[2022-12-09] MEDS: diphenhydrAMINE 25mg capsule PO PRN (08:02)
[2022-12-09] MEDS: venlafaxine XR 75mg capsule (Q24H) PO SCH (08:02)
[2022-12-09] MEDS: heparin, porcine 5000 units/ml vial SQ SCH (08:04)
[2022-12-09] MEDS: nicotine 14mg patch - 24hr TD SCH (08:05)
[2022-12-09 10:00] VITALS: BP 100/71; PULSE 100; RESP 18; TEMP 97.2; O2SAT 97
[2022-12-09] MEDS ORDERED: COR3.125T PO (11:49)
[2022-12-09] MEDS ORDERED: SACU1TAB PO (11:49)
[2022-12-09] MEDS ORDERED: SPIR25TA PO (11:49)
[2022-12-09] MEDS ORDERED: HYDR-3973 PO (11:49)
--- NOTE | 2022-12-09 12:55 | NUR ---
PAGER ID: [phone] MESSAGE: Angel, May Please call me regarding discharge medications. Thank you Gabi [phone]
[2022-12-09] MEDS ORDERED: HYDROcodone/acetaminophen 10/325mg tab PO PRN (13:10)
[2022-12-09] MEDS ORDERED: HYDROcodone/acetaminophen 5mg/325mg tablet PO PRN (13:10)
[2022-12-09 15:00] VITALS: BP 96/74; PULSE 90; RESP 16; TEMP 97.8; O2SAT 99
[2022-12-09] MEDS ORDERED: PCA WASTE DOCUMENTATION 1 MG ML MC SCH (15:30)
--- NOTE | 2022-12-09 16:39 | NUR ---
PAGER ID: [phone] MESSAGE: Mamie Ortiz [id number] Pt. bf here super mad. They want her discharged. No N/V since lunch. Gabi [phone]
[2022-12-09 17:14] VITALS: RESP 17
--- NOTE | 2022-12-09 18:16 | NUR ---
Pt. discharged. piv removed.
== END 2022-12-09 17:40 | disposition home or self-care (01) | DRG 263 ==
LOC: ER 11:50 → ED HOLD 15:33 → PCU 3S 22:30
PROVIDERS: ADMIT Family Medicine; ATTEND Family Medicine
PROC: CF1 Nuclear Medicine, Hepatobiliary System and Pancreas, Planar Nuclear Medicine Imaging (ICD-10-PCS; 2022-12-04)
PROC: 4A02XM4 Measurement of Cardiac Total Activity, External Approach (ICD-10-PCS; 2022-12-06)
PROC: 3E033HZ Introduction of Radioactive Substance into Peripheral Vein, Percutaneous Approach (ICD-10-PCS; 2022-12-06)
PROC: 8E0W4CZ Robotic Assisted Procedure of Trunk Region, Percutaneous Endoscopic Approach (ICD-10-PCS; 2022-12-07)
PROC: 0FT44ZZ Resection of Gallbladder, Percutaneous Endoscopic Approach (ICD-10-PCS; principal; 2022-12-07 15:40)
DX: K82.8 Other specified diseases of gallbladder (principal); K92.0 Hematemesis; I50.22 Chronic systolic (congestive) heart failure; E87.1 Hypo-osmolality and hyponatremia; I25.10 Atherosclerotic heart disease of native coronary artery without angina pectoris; K76.0 Fatty (change of) liver, not elsewhere classified; I25.2 Old myocardial infarction; E87.6 Hypokalemia; N95.1 Menopausal and female climacteric states; Z79.01 Long term (current) use of anticoagulants; Z79.84 Long term (current) use of oral hypoglycemic drugs; Z79.899 Other long term (current) drug therapy; Z82.49 Family history of ischemic heart disease and other diseases of the circulatory system; Z83.3 Family history of diabetes mellitus; Z86.711 Personal history of pulmonary embolism; Z87.891 Personal history of nicotine dependence; Z88.1 Allergy status to other antibiotic agents; Z90.710 Acquired absence of both cervix and uterus; Z95.5 Presence of coronary angioplasty implant and graft; Z88.8 Allergy status to other drugs, medicaments and biological substances
CPT/HCPCS: 36415; 71045; 74176; 76700; 76856; 78227; 78452; 80053; 82948; 83036; 83735; 83880; 84100; 84145; 84484; 85025; 85610; 85730; 86677; 87081; 93005; 93017; 93306; 93976; 96365; 96375; 99285; A4215; A4615; A4618; A6402; A7000; A9500; A9537; C1758; G0378; J0131; J0780; J1100; J1170; J1644; J2250; J2270; J2370; J2405; J2704; J2710; J2785; J2805; J3010; J3480; J3490; J7030; J7040; J7120; Q0163; Q9963